=== PATIENT | female | born 1985 | race Caucasian/White ===

== ENCOUNTER → 2017-01-29 | Outpatient (CLI) | payer MEDICAID, OTHER ==
[~2017-01-29] MED LIST: ONDA4TAB8 PO
--- NOTE | 2017-01-29 10:28 | Diagnostic Imaging Report ---
Indication: Severe shooting right-sided pelvic pain. Comparison: None. Discussion: Transabdominal and transvaginal sonographic evaluation of the pelvis was performed. The uterus is normal in echotexture and size measuring 9 x 5 x 5 cm. Normal endometrial thickness measuring 1 cm. Multiple bowel loops within the right adnexa appeared to obscure the right ovary which was not visualized. There is a septated cystic mass within the left adnexa which is nonspecific and could represent a cystic ovarian lesion or hydrosalpinx. Normal solid appearing ovarian tissue on the left is not visualized. There is no mural nodularity or abnormal color Doppler blood flow identified with this cystic mass. On CT from 05/21/2016, the patient does appear to have a similar appearing cystic mass within the left adnexa. Impression: 1. Nonvisualization of the right ovary. 2. No normal-appearing left ovarian tissue is identified. There is a septated cystic mass noted within the left adnexa which is nonspecific and could be seen with ovarian follicular activity, cystadenoma, less likely cystadenocarcinoma, or even hydrosalpinx. At a minimum, recommend continued sonographic followup. Dictated by: Dictated on workstation # [id number]
== END ==
LOC: RAD 07:46
PROVIDERS: ATTEND Nurse Practitioner Community Health
DX: R19.09 Other intra-abdominal and pelvic swelling, mass and lump (principal)
CPT/HCPCS: 76830; 76856

== ENCOUNTER → 2017-03-30 | Outpatient (CLI) | payer MEDICAID ==
--- NOTE | 2017-03-30 19:38 | Diagnostic Imaging Report ---
Indication: Right foot pain. Comparison: None available. Technique: 3 nonweightbearing views of the left foot. 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 On nonweightbearing imaging, the Lisfranc alignment appears grossly normal, although weightbearing images were acquired for better assessment. No acute fracture of the metatarsals is seen. Foci of mineralization along the dorsal aspect of the talus likely is due to old trauma. However this corresponds to focus of maximal pain, this could represent small avulsion injury at the focus of the capsule insertion. However, the majority of the soft tissue swelling involves the forefoot rather than the hindfoot. Large plantar calcaneal spur. Impression: 1. No definitive acute fracture. As detailed above, there could be a small avulsion type fracture at the dorsal aspect of the talar head. Clinical correlation for focal tenderness in this region is advised, although radiographically this has a chronic appearance. 2. 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 Dictated by: Dictated on workstation # [id number]
== END ==
LOC: RAD 18:58
PROVIDERS: ATTEND Nurse Practitioner Family
DX: M96.0 Pseudarthrosis after fusion or arthrodesis (principal)
CPT/HCPCS: 73630